=== PATIENT | female | born 1995 | race Caucasian/White ===

== ENCOUNTER 2017-05-23 02:22 | Outpatient (REF) | payer SELFPAY ==
[2017-05-23 03:30] LABS: Pregnancy, Serum, hCG Quali. NEGATIVE Negative (0-9 Nonpreg)
== END 2017-05-23 06:00 | disposition home or self-care (01) ==
LOC: EDREF 02:22
PROVIDERS: Emergency Medicine
DX: Z04.41 Encounter for examination and observation following alleged adult rape (principal)
CPT/HCPCS: 84703

== ENCOUNTER 2017-10-21 14:24 | Emergency (ER) | payer OTHER, SELFPAY ==
[2017-10-21] VITALS (9 sets, daily range): BP systolic 95–111; BP diastolic 60–71; PULSE 64–93; RESP 14–17; TEMP 36.9; O2SAT 97–100; BMI 22.4
[2017-10-21 15:12] LABS: Absolute Lymphocyte Count 1.43 X10^3/ul (0.83-4.51); Absolute Neutrophil Count 2.8 X10^3/uL (2.0-7.7); Basophil# 0.02 X10^3/uL; Basophil% 0.4 % (0-1); Eosinophil# 0.03 X10^3/uL; Eosinophils% 0.7 % (0-5); Hematocrit 41.3 % (37-47); Lymphocyte # 1.43 X10^3/ul (4.0); Lymphocyte % 31.9 % (19-41); Mean Corp Hgb Conc 33.9 g/gl (32-36); Mean Corpuscular Hgb 31.8 pg (27.0-32.0); Mean Corpuscular Volume 93.9 fL (81-99); Mean Platelet Vol. 9.9 fl (6.2-12.0); Monocyte# 0.21 X10^3/uL; Monocyte% 4.7 % (0-10); Neutrophil # 2.79 X10^3/uL (2.7-7.7); Neutrophil % 62.3 % (47-70); POSITIVE COUNT NO; POSITIVE DIFFERENTIAL NO; POSITIVE MORPHOLOGY NO; Platelet Count 261 K/mm3 (150-450); RBC Distribution Width CV 11.9 % (11.6-14.6); RBC Distribution Width SD 40.4 fl (35.1-43.9); White Blood Count 4.5 K/mm3 (4.4-11.0)
--- NOTE | 2017-10-21 15:12 | ED.VISSUMM ---
- ER Visit Summary Date of Service: 10/21/17 Chief Complaint: Suicidal ideation History of Present Illness: The patient is a 22 F presenting with suicidal ideation. She has been depressed. She went to the wellness center last night and was seen by a counselor. She was reevaluated this morning by the counselor who feels that she would benefit from inpatient hospitalization. Patient has had thoughts of cutting herself and overdosing. She has history of previous suicide attempts. She is not currently on medications. She admits to occasional alcohol use. Denies tobacco or drug use. Physical Examination: Vitals are stable. Patient is afebrile. Alert no acute distress. HEENT exam is unremarkable. Neck is supple. Lungs are clear and equal bilaterally. Heart is regular rate and rhythm. Extremities are unremarkable. Skin is warm and dry. No focal neurologic deficit. Depressed affect, poor eye contact Remainder of exam is unremarkable. Emergency Department Course and Treatment: CBC, chemistries unremarkable. HCG negative. Tox and alcohol are negative. Discussed with the counseling center for evaluation. Disposition: Per counseling center Impression: Suicidal ideation This note was generated with [employer] dictation software. It may contain incorrect words, spelling, and punctuation that were not noted in review of the chart prior to signing ED Disposition - Plan for ED Patient: Chief Complaint: Suicidal Referrals: MILA Story [PHYSICIAN LUMBER TRIMMER] -
--- NOTE | 2017-10-21 15:15 | ED.DCSUM_ITS ---
- ER Visit Summary Date of Service: 10/21/17 Chief Complaint: Suicidal ideation History of Present Illness: The patient is a 22 F presenting with suicidal ideation. She has been depressed. She went to the wellness center last night and was seen by a counselor. She was reevaluated this morning by the counselor who feels that she would benefit from inpatient hospitalization. Patient has had thoughts of cutting herself and overdosing. She has history of previous suicide attempts. She is not currently on medications. She admits to occasional alcohol use. Denies tobacco or drug use. Physical Examination: Vitals are stable. Patient is afebrile. Alert no acute distress. HEENT exam is unremarkable. Neck is supple. Lungs are clear and equal bilaterally. Heart is regular rate and rhythm. Extremities are unremarkable. Skin is warm and dry. No focal neurologic deficit. Depressed affect, poor eye contact Remainder of exam is unremarkable. Emergency Department Course and Treatment: CBC, chemistries unremarkable. HCG negative. Tox and alcohol are negative. Discussed with the counseling center for evaluation. Disposition: Per counseling center Impression: Suicidal ideation This note was generated with [employer] dictation software. It may contain incorrect words, spelling, and punctuation that were not noted in review of the chart prior to signing ED Disposition - Plan for ED Patient: Chief Complaint: Suicidal Referrals: MILA Story [PHYSICIAN FLARING MACHINE OPERATOR] -
[2017-10-21 15:23] LABS: Anion Gap 9 (5-15); BUN 8 mg/dL (7-18); BUN/Creat Ratio 11.3 RATIO (10-20); Calcium,Total 8.9 mg/dL (8.5-10.1); Chloride 110 mmol/L (98-107); Creatinine, Serum 0.71 mg/dL (0.55-1.02); EST Glomerular Filtration Rate 110 mL/min (>60); Est Glom Filt Rate - Afr Amer 133 mL/min (>60); Glucose 74 mg/dL (74-106); Potassium 3.8 mmol/L (3.5-5.1); Sodium Level 144 mmol/L (136-145)
[2017-10-21 15:26] LABS: Amphetamine Urine VISTA NEGATIVE (<1000 ng/mL); Barbiturate Urine VISTA NEGATIVE (< 200 ng/mL); Benzodiazepine Urine VISTA NEGATIVE (< 200 ng/mL); Cocaine Urine VISTA NEGATIVE (< 300 ng/mL); Ecstacy Urine VISTA NEGATIVE (< 500 ng/mL); Methadone Urine VISTA NEGATIVE (< 300 ng/mL); PCP Urine VISTA NEGATIVE (< 25 ng/mL); THC Urine VISTA NEGATIVE (< 50 ng/mL); Vista UDS pH Range 7
[2017-10-21 15:29] LABS: Pregnancy, Serum, hCG Quali. NEGATIVE Negative (0-9 Nonpreg)
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
[2017-10-22] VITALS (8 sets, daily range): BP systolic 103; BP diastolic 69; PULSE 86; RESP 14–17; O2SAT 100
--- NOTE | 2017-10-22 09:07 | NURSING ---
RICKY, [facility], CALLED. SHE HAS CALLED [facility], TALKED TO LISBET AND SCOTTY. THEY ARE TO GET BACK TO [facility].
--- NOTE | 2017-10-22 09:57 | NURSING ---
PATIENT ACCEPTED AT [facility]
--- NOTE | 2017-10-22 10:07 | NURSING ---
CALLED [facility] FOR TRANSPORT. ETA 15 [id number] MIN
== END 2017-10-22 10:46 ==
PROVIDERS: Emergency Provider Emergency Medicine
DX: R45.851 Suicidal ideations (principal)
CPT/HCPCS: 80048; 80307; 80320; 84703; 85025; 99284; G0480